=== PATIENT | male | born 1940 | race Hispanic/Latino ===

== ENCOUNTER 2017-01-27 10:14 | Emergency (ER) | payer MEDICARE ==
--- NOTE | 2017-01-27 11:22 | C.PDOC ---
History Of Present Illness 77-year-old male, presents to the emergency department with complaints of chronic left knee pain. 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 denies head injury Denies loss of consciousness, headache, neck pain, fevers, numbness/weakness, or any other associated symptoms. No other complaints at this time. Of note, patient has not seen a doctor since 1963. pt was assisted off ground by EMS, per RN, and was unable to walk unassisted, thus brought to ED for evaluation. Time Seen by Provider: 01/27/17 10:30 Chief Complaint (Nursing): Lower Extremity Problem/Injury History Per: Patient History/Exam Limitations: no limitations Onset/Duration Of Symptoms: Other (CLINICAL PARTNER) Past Medical History Reviewed: Historical Data, Nursing Documentation, Vital Signs Vital Signs: Last Vital Signs Temp 98.2 F 01/27/17 14:28 Pulse 100 H 01/27/17 16:10 Resp 18 01/27/17 16:10 BP 120/84 01/27/17 16:10 Pulse Ox 97 01/27/17 16:10 Family History: States: No Known Family Hx - Social History Hx Alcohol Use: No Hx Substance Use: No - Immunization History Hx Tetanus Toxoid Vaccination: No Hx Influenza Vaccination: No Hx Pneumococcal Vaccination: No Review Of Systems Constitutional: Negative for: Fever, Chills Cardiovascular: Negative for: Chest Pain Respiratory: Negative for: Shortness of Breath Gastrointestinal: Negative for: Vomiting Musculoskeletal: Positive for: Other (Chronic knee pain, not currently present.) . Negative for: Back Pain Skin: Negative for: Rash Neurological: Negative for: Weakness, Numbness Physical Exam - Physical Exam Appears: Non-toxic, No Acute Distress Skin: Warm, Dry, No Rash Head: Atraumatic Eye(s): bilateral: Normal Inspection Nose: Normal Oral Mucosa: Dry Teeth: Edentulous (mostly), Other Neck: Normal ROM, No Midline Cervical Tenderness Chest: No Deformity, No Tenderness Cardiovascular: Rhythm Regular, No Murmur Respiratory: Normal Breath Sounds, No Accessory Muscle Use, No Rales, No Rhonchi , No Wheezing, Other (equal breath sounds B/L) Gastrointestinal/Abdominal: Soft, No Tenderness Extremity: Normal ROM, No Tenderness, No Pedal Edema, No Calf Tenderness, Capillary Refill (<2 seconds), No Deformity, Swelling, Other (Left knee: swelling w/ small abrasion. FROM. Toes are crooked with poor hygeine. ) Pulses: Left Dorsalis Pedis: Normal, Right Dorsalis Pedis: Normal Neurological/Psych: Oriented x3, Normal Speech, Normal Cognition, Normal Cranial Nerves (II-XII intact), Normal Motor, Normal Sensation, Other (No focal deficit) ED Course And Treatment O2 Sat by Pulse Oximetry: 98 (on RA) Pulse Ox Interpretation: Normal Medical Decision Making Medical Decision Making: pt not c/o pain to knee at this time; declines any blood work offered in ER; agrees to xray of knee. pt with severe oa in left knee' pt given knee immobilizer and walker. instructed by pt in use of walker. able to go home safely now. Disposition Counseled Patient/Family Regarding: Studies Performed, Diagnosis, Need For Followup, Rx Given - Disposition Referrals: [facility] [Outside] Disposition: HOME/ ROUTINE Disposition Time: 15:15 Condition: STABLE Additional Instructions: Follow up in medical clinic for a check up. Call for an appointment. Take Tylenol for pain. Return to ER for any worse symptoms. Prescriptions: Acetaminophen [Tylenol 325mg tab] 650 mg PO Q4 #50 tab Instructions: Osteoarthritis (ED) Forms: [facility] (Welsh) - Clinical Impression Clinical Impression: Arthritis of knee, left - Scribe Statement The provider has reviewed the documentation as recorded by the Scribe (Radha Spencer) All medical record entries made by the Scribe were at my direction and personally dictated by me. I have reviewed the chart and agree that the record accurately reflects my personal performance of the history, physical exam, medical decision making, and the department course for this patient. I have also personally directed, reviewed, and agree with the discharge instructions and disposition.
--- NOTE | 2017-01-27 13:10 | RAD ---
PROCEDURE: Left Knee Radiographs. HISTORY: Pain. COMPARISON: None. FINDINGS: BONES: There is periarticular bone demineralization. No acute fracture or bone destruction. JOINTS: There is severe tricompartmental degenerative osteoarthrosis with severe reduced lateral compartment and patellofemoral joint spaces, large marginal osteophytes and tibial spiking, worse in the lateral compartment. There is also medial compartment chondrocalcinosis. JOINT EFFUSION: There is a small suprapatellar joint effusion. OTHER FINDINGS: None. IMPRESSION: Severe tricompartmental degenerative osteoarthrosis, worse in the lateral compartment. No acute displaced fracture or dislocation.
[2017-01-27 14:29] VITALS: TEMP 98.2
[2017-01-27 16:21] VITALS: BP 120/84; PULSE 100; RESP 18
[2017-02-02 09:21] VITALS: O2SAT 98
== END 2017-01-27 16:24 | disposition home or self-care (01) ==
LOC: C.ER 10:14
DX: M13.862 Other specified arthritis, left knee (principal)
CPT/HCPCS: 73562; 97116; 99284; G8978; G8979; G8980